=== PATIENT | male | born 1990 | race Two or more races ===

== ENCOUNTER 2023-06-21 18:13 | Emergency (ER) | payer OTHER ==
[~2023-06-21] VITALS: Ht 182.9 cm; Wt 105.0 kg
[2023-06-21] MEDS: HYDROcodone-ACET 5/325MG TAB PO ONE (20:35)
[2023-06-22] MEDS: MORPHINE SULFATE 4 MG/ML SYR/VIAL IM ONE (03:15)
[2023-06-22] MEDS: ONDANSETRON ODT 4 MG TAB PO ONE (03:15)
[2023-06-22 03:45] VITALS: PULSE 63; RESP 14; O2SAT 98
[2023-06-22 07:39] VITALS: PULSE 78; RESP 14; O2SAT 98
[2023-06-22 08:21] VITALS: BP 105/53; PULSE 65; RESP 14; TEMP 97.6; O2SAT 99
== END 2023-06-22 08:24 | disposition short-term general hospital (02) ==
LOC: EEVIPCON 18:13 → ER 18:13
DX: T79.A21A Traumatic compartment syndrome of right lower extremity, initial encounter (principal); X58.XXXA Exposure to other specified factors, initial encounter; Y93.66 Activity, soccer; Y92.89 Other specified places as the place of occurrence of the external cause; Y99.8 Other external cause status
CPT/HCPCS: 73700; 96372; 99285; J2270; Q0162